=== PATIENT | female | born 1925 | race Caucasian/White ===

== ENCOUNTER 2016-08-28 13:20 | Inpatient (IN) | payer MEDICARE, BC ==
[2016-08-28] VITALS (7 sets, daily range): BP systolic 96–143; BP diastolic 38–65
[~2016-08-28] VITALS: Ht 170.2 cm; Wt 54.4 kg
--- NOTE | 2016-08-28 13:30 | NUR ---
DR HERNANDES AT THE BEDSIDE FOR EVAL AND EXAM.
[2016-08-28] MEDS ORDERED: [UNRECOGNIZED DRUG - REMARK] (13:32)
[2016-08-28] MEDS ORDERED: [UNRECOGNIZED DRUG - REMARK] (13:32)
[2016-08-28] MEDS ORDERED: IV NORMAL SALINE 1000 ML BAG IV ONE (13:45)
[2016-08-28 15:05] LABS: BASOPHILS % (AUTO) 0.4 % (0.0-2.0); CARBON DIOXIDE 28 mmol/L (21-32); CHLORIDE 96 mmol/L (98-107); EOSINOPHILS # (AUTO) 0.1 K/uL (0.0-0.7); EOSINOPHILS % (AUTO) 1.8 % (0.0-7.0); GLUCOSE 124 mg/dL (74-106); HEMOGLOBIN 7.3 G/DL (12.0-16.0); LYMPHOCYTES # (AUTO) 0.5 K/uL (20.0-40.0); LYMPHOCYTES % (AUTO) 11.2 % (20.5-51.5); MEAN CORPUSCULAR HEMOGLOBIN 27.9 UUG (27.0-31.0); MEAN CORPUSCULAR HGB CONC 35 g/dL (32.0-37.0); MONOCYTES # (AUTO) 0.5 K/uL (2.0-10.0); MONOCYTES % (AUTO) 9.7 % (0.0-11.0); NEUTROPHILS # (AUTO) 3.7 K/uL (1.8-8.9); NEUTROPHILS % (AUTO) 76.9 % (38.5-71.5); PLATELET COUNT (AUTO) 278 K/UL (150-450); POTASSIUM 3.7 mmol/L (3.5-5.1); RED BLOOD CELL COUNT(AUTO) 2.62 MIL/UL (4.2-5.4); WHITE BLOOD COUNT (AUTO) 4.8 K/UL (4.0-11.2)
[2016-08-28 15:08] LABS: HEMATOCRIT 20.9 % (37-47); UREA NITROGEN, BLOOD 125 mg/dL (7-18)
[2016-08-28 15:12] LABS: ALKALINE PHOSPHATASE 39 U/L (50-136); BILIRUBIN,DIRECT < 0.1 mg/dL (0.0-0.2); BILIRUBIN,TOTAL 0.2 mg/dL (0.1-1.0)
[2016-08-28 15:13] LABS: ALANINE AMINOTRANSFERASE 17 U/L (14-59); ASPARTATE AMINOTRANSFERASE 22 U/L (15-37); TOTAL PROTEIN, SERUM 6.3 g/dL (6.4-8.2)
[2016-08-28] MEDS ORDERED: PANTOPRAZOLE SODIUM IV 80 MG in IV DEXTROSE 5% 100 ML IV ONE (15:15)
[2016-08-28] MEDS ORDERED: PANTOPRAZOLE SODIUM 40 MG VIAL ONE (15:24)
[2016-08-28] MEDS ORDERED: ACETAMINOPHEN ES 500 MG TABLET PO ONE (15:45)
--- NOTE | 2016-08-28 15:50 | NUR ---
PT C/O LEG CRAMPS, AWARE.
--- NOTE | 2016-08-28 15:57 | NUR ---
BELONGING LIST COMPLETED AND PLACED IN THE CHART, NOT CANDIDATE FOR MRSA.
[2016-08-28] MEDS ORDERED: ACETAMINOPHEN ES 500 MG TABLET ONE (16:00)
--- NOTE | 2016-08-28 18:35 | NUR ---
PT AWAKE IN BED, WITH FRIEND AT BEDSIDE. SR ON TELE MONITOR, NO COMPLAINTS OF PAIN, VS STABLE DR AWARE PT IS HERE WITH ORDERS TO FOLLOW. CALL LIGHT IN REACH
[2016-08-28] MEDS ORDERED: MIRALAX 17 GM POWD.PACK PO PRN (20:15)
[2016-08-28] MEDS ORDERED: ONDANSETRON 4 MG/2 ML VIAL IV PRN (20:15)
[2016-08-28] MEDS ORDERED: ACETAMINOPHEN 325 MG TABLET PO PRN (20:15)
[2016-08-28] MEDS ORDERED: MORPHINE SULFATE 2 MG/1 ML DISP.SYRIN IV PRN (20:15)
[2016-08-28 20:23] LABS: IRON, SERUM 20 ug/dL (50-175)
[2016-08-28] MEDS: DOCUSATE SODIUM 100 MG CAPSULE PO SCH (21:00)
--- NOTE | 2016-08-28 22:31 | NUR ---
NSG: PT HAS THE URGE TO URINATE BUT HAS DIFFICULTY. DR. BRISENO IS AWARE. PER MD, CHECK BLADDER WITH BLADDER SCAN IN 1 HR, DOCUMENT. IF THERE'S TOO MUCH URINE RESIDUAL, INSERT F/C. WILL MONITOR.
[2016-08-29] VITALS (11 sets, daily range): BP systolic 100–140; BP diastolic 36–65
[2016-08-29] MEDS: POTASSIUM CHLORIDE 20 MEQ in IV NS 1000 ML 1,000 ML IV PRN ×2 (04:37→21:06)
[2016-08-29] MEDS: PANTOPRAZOLE SODIUM 40 MG TABLET.DR PO SCH (06:05)
[2016-08-29 06:58] LABS: BASOPHILS % (AUTO) 0.7 % (0.0-2.0); EOSINOPHILS # (AUTO) 0.1 K/uL (0.0-0.7); EOSINOPHILS % (AUTO) 1.8 % (0.0-7.0); HEMOGLOBIN 10.5 G/DL (12.0-16.0); LYMPHOCYTES # (AUTO) 0.9 K/uL (20.0-40.0); LYMPHOCYTES % (AUTO) 16.1 % (20.5-51.5); MEAN CORPUSCULAR HGB CONC 34 g/dL (32.0-37.0); MEAN CORPUSCULAR VOLUME 82.2 FL (81.0-99.0); MONOCYTES # (AUTO) 0.4 K/uL (2.0-10.0); NEUTROPHILS # (AUTO) 4.2 K/uL (1.8-8.9); NEUTROPHILS % (AUTO) 73.4 % (38.5-71.5); PLATELET COUNT (AUTO) 259 K/UL (150-450); RED BLOOD CELL COUNT(AUTO) 3.77 MIL/UL (4.2-5.4); WHITE BLOOD COUNT (AUTO) 5.6 K/UL (4.0-11.2)
[2016-08-29 07:15] LABS: THYROID STIMULATING HORMONE 2.632 mIU/mL (0.358-3.740)
--- NOTE | 2016-08-29 07:20 | NUR ---
Pt received awake,alert,oriented.Denies pain, discomfort.SR on telemetry.VS WNL.On room air.No SOB noted.
[2016-08-29 07:27] LABS: CREATININE 2.7 mg/dL (0.6-1.3); MAGNESIUM 2.6 mg/dL (1.8-2.4); PHOSPHOROUS 4.8 mg/dL (2.5-4.9); POTASSIUM 3.7 mmol/L (3.5-5.1); TOTAL PROTEIN, SERUM 6.6 g/dL (6.4-8.2)
--- NOTE | 2016-08-29 15:46 | NUR ---
Pt remains awake,alert,oriented.Out of bed,tolerated well.
--- NOTE | 2016-08-29 20:00 | NUR ---
RECEIVED PATIENT AWAKE IN BED WITH FAMILY AT BEDSIDE. PATIENT IS A/O X4. DENIES PAIN OR DISCOMFORT. NO RESP. DISTRESS NOTED. IVF INFUSING WELL. ON TELE SR. VSS. CALL LIGHT IN REACH. ALL NEEDS ATTENDED, WILL CONTINUE TO MONITOR.
--- NOTE | 2016-08-29 20:05 | NUR ---
CLINICAL PHARMACY NOTE:VANCOMYCIN DOSING Request for vancomycin dosing on 89 y/o female 5'7" 120 lbs for BLE cellulitis Temp 98.8F BUN 108 Scr 2.7 WBC 5.6 also receiving Ceftriaxone Will dose by levels due to decrease renal function. Give vancomycin 1gm ivpb tonight. Random vancomycin to be drawn tomorrow evening. Will continue to follow
[2016-08-29] MEDS: DOCUSATE SODIUM 100 MG CAPSULE PO SCH ×2 (20:57→21:18)
[2016-08-29] MEDS ORDERED: VANCOMYCIN IV 1 G in PREMIXED 0 EACH IV ONE (21:00)
[2016-08-29] MEDS: CEFTRIAXONE 1 G in IV DEXTROSE 5% 50 ML IV SCH (21:05)
[2016-08-30 00:36] VITALS: BP 132/75
[2016-08-30 04:00] VITALS: BP 128/65
[2016-08-30 05:59] LABS: *BILIRUBIN,URIN NEGATIVE (NEGATIVE); *BLOOD, URINE Trace-intact (NEGATIVE); *CLARITY,URINE CLEAR (CLEAR); *COLOR,URINE YELLOW (YELLOW); *KETONES,URINE NEGATIVE (NEGATIVE); *PROTEIN,URINE NEGATIVE (NEGATIVE); *UROBILINOGEN,URINE 0.2 E.U./dl (NORMAL); LEUKOCYTE ESTERASE ,URINE 2+ (NEGATIVE); NITRITE, URINE NEGATIVE (NEGATIVE); UGLUCOSE NEGATIVE (NEGATIVE)
[2016-08-30 06:01] LABS: *CREATININE,URINE 34.6 mg/dL (30-125); *URINE TOTAL PROTEIN RANDOM 21.3 mg/dL (<150/24HR)
[2016-08-30 06:10] LABS: BACTERIA,URINE FEW /HPF (NONE SEEN); RBC,URINE 0-3 /HPF (0-3); SQUAMOUS EPITHELIAL CELL,UR FEW /HPF (NONE SEEN); WBC,URINE 20-50 /HPF (0-3)
--- NOTE | 2016-08-30 06:27 | NUR ---
PATIENT ASLEEP IN BED. EASILY AROUSABLE. SLEPT WELL THROUGHOUT THE NIGHT. ON TELE SR. IVF INFUSING WELL TO LEFT FA #20 GAUGE. F/C INTACT AND DRAINING WELL. CALL LIGHT IN REACH. ALL NEEDS ATTENDED. WILL CONTINUE TO MONITOR.
[2016-08-30] MEDS: PANTOPRAZOLE SODIUM 40 MG TABLET.DR PO SCH (06:34)
--- NOTE | 2016-08-30 07:00 | NUR ---
PT IS LAYING IN BED COMFORTABLY. NO S/S OF RESPIRATORY DISTRESS NOTED. NO PAIN NOTED/REPORTED. IV IS INTACT/PATENT. ALL SAFETY NEEDS ARE MET. WILL CONTINUE TO MONITOR.
[2016-08-30 07:12] LABS: BILIRUBIN,TOTAL 0.5 mg/dL (0.2-1.0); PHOSPHOROUS 2.6 mg/dL (2.5-4.9); POTASSIUM 3.9 mmol/L (3.5-5.1); TOTAL PROTEIN, SERUM 6.4 g/dL (6.4-8.2)
[2016-08-30 07:13] LABS: CREATININE 1.8 mg/dL (0.6-1.3); EOSINOPHILS # (AUTO) 0.2 K/uL (0.0-0.7); HEMATOCRIT 29.6 % (37-47); HEMOGLOBIN 10.2 G/DL (12.0-16.0); LYMPHOCYTES # (AUTO) 0.7 K/uL (20.0-40.0); LYMPHOCYTES % (AUTO) 12.3 % (20.5-51.5); MEAN CORPUSCULAR HEMOGLOBIN 28.1 UUG (27.0-31.0); MEAN CORPUSCULAR HGB CONC 34 g/dL (32.0-37.0); MEAN CORPUSCULAR VOLUME 81.8 FL (81.0-99.0); MONOCYTES # (AUTO) 0.6 K/uL (2.0-10.0); MONOCYTES % (AUTO) 11.4 % (0.0-11.0); NEUTROPHILS % (AUTO) 73.3 % (38.5-71.5); PLATELET COUNT (AUTO) 257 K/UL (150-450); RED BLOOD CELL COUNT(AUTO) 3.62 MIL/UL (4.2-5.4); WHITE BLOOD COUNT (AUTO) 5.5 K/UL (4.0-11.2)
--- NOTE | 2016-08-30 09:06 | NUR ---
DR. BRISENO IS AWARE THAT THE PT WANTS TO BE DNR
[2016-08-30 11:08] VITALS: BP 126/60
[2016-08-30] MEDS: POTASSIUM CHLORIDE 20 MEQ in IV NS 1000 ML 1,000 ML IV PRN (13:30)
[2016-08-30 15:22] VITALS: BP 122/67
--- NOTE | 2016-08-30 17:39 | NUR ---
CLINICAL PHARMACY NOTE:VANCOMYCIN DOSING Subjective: vancomycin dosing on 89 y/o female 5'7" for BLE cellulitis. Pt received 1gm vanco @ 2200 on 08/30/2016. Patient is also receiving Ceftriaxone. Objective: Temp 98.6F BUN 61 Scr 1.8 WBC 5.5 Dosing wt= 120 lbs, Vancomycin level 10.2 mcg/ml Assessment/Plan: Will dose by levels due to unstable renal function. Will give another dose of vancomycin 1gm. Random vancomycin to be drawn tomorrow evening. Once renal fxn is more stable will dose on a scheduled basis. Will continue to follow
[2016-08-30] MEDS ORDERED: VANCOMYCIN IV 1 G in PREMIXED 0 EACH IV ONE (18:00)
--- NOTE | 2016-08-30 19:24 | NUR ---
NO CHANGES NOTED. ALL SAFETY NEEDS ARE MET.
--- NOTE | 2016-08-30 20:00 | NUR ---
RECEIVED PATIENT AWAKE IN BED WITH VISITOR AT BEDSIDE. PATIENT IS A/O X4. DENIES PAIN OR DISCOMFORT. NO RESP. DISTRESS NOTED. HEPLOCK NOTED TO LEFT FA, RED AND INFILTRATED. NEW IV HEPLOCK STARTED TO LEFT UPPER ARM #20 GAUGE. IVF INFUSING WELL ORDERED. VSS. BED ALARM ON. CALL LIGHT IN REACH. ALL NEEDS ATTENDED. WILL CONTINUE TO MONITOR.
[2016-08-30] MEDS: LACTOBACILLUS RHAMNOSUS GG 1 EACH CAPSULE PO SCH (20:02)
[2016-08-30] MEDS: DOCUSATE SODIUM 100 MG CAPSULE PO SCH (20:02)
[2016-08-30] MEDS: CEFTRIAXONE 1 G in IV DEXTROSE 5% 50 ML IV SCH (20:15)
[2016-08-30 20:24] VITALS: BP 127/62
[2016-08-31 05:32] VITALS: BP 130/62
[2016-08-31] MEDS: POTASSIUM CHLORIDE 20 MEQ in IV NS 1000 ML 1,000 ML IV PRN (06:01)
--- NOTE | 2016-08-31 06:05 | NUR ---
PATIENT AWAKE IN BED. SLEPT WELL THROUGHOUT THE NIGHT. DENIES PAIN OR DISCOMFORT. NO RESP. DISTRESS NOTED. IVF INFUSING WELL TO LEFT UPPER ARM. VSS. CALL LIGHT IN REACH. ALL NEEDS ATTENDED. WILL CONTINUE TO MONITOR.
[2016-08-31] MEDS: PANTOPRAZOLE SODIUM 40 MG TABLET.DR PO SCH (06:23)
[2016-08-31 07:43] LABS: EOSINOPHILS # (AUTO) 0.2 K/uL (0.0-0.7); EOSINOPHILS % (AUTO) 3.8 % (0.0-7.0); HEMOGLOBIN 10.6 G/DL (12.0-16.0); LYMPHOCYTES % (AUTO) 17.3 % (20.5-51.5); MEAN CORPUSCULAR HEMOGLOBIN 28.4 UUG (27.0-31.0); MEAN CORPUSCULAR HGB CONC 34 g/dL (32.0-37.0); MEAN CORPUSCULAR VOLUME 83.5 FL (81.0-99.0); MONOCYTES # (AUTO) 0.6 K/uL (2.0-10.0); MONOCYTES % (AUTO) 11.2 % (0.0-11.0); NEUTROPHILS # (AUTO) 3.7 K/uL (1.8-8.9); NEUTROPHILS % (AUTO) 67.7 % (38.5-71.5); PLATELET COUNT (AUTO) 249 K/UL (150-450); RED BLOOD CELL COUNT(AUTO) 3.72 MIL/UL (4.2-5.4); WHITE BLOOD COUNT (AUTO) 5.5 K/UL (4.0-11.2)
--- NOTE | 2016-08-31 07:51 | NUR ---
NO CHANGES NOTED. PT IS SLEEPING IN BED COMFORTABLY. ALL SAFETY NEEDS ARE MET.
[2016-08-31 08:03] LABS: BILIRUBIN,TOTAL 0.4 mg/dL (0.2-1.0); MAGNESIUM 1.6 mg/dL (1.8-2.4); POTASSIUM 4.2 mmol/L (3.5-5.1); TOTAL PROTEIN, SERUM 6.3 g/dL (6.4-8.2)
[2016-08-31 08:05] LABS: CREATININE 1.5 mg/dL (0.6-1.3)
[2016-08-31] MEDS: LACTOBACILLUS RHAMNOSUS GG 1 EACH CAPSULE PO SCH ×2 (08:10→20:48)
--- NOTE | 2016-08-31 11:05 | NUR ---
CLINICAL PHARMACY NOTE:VANCOMYCIN DOSING Subjective: vancomycin dosing on 89 y/o female 5'7" for BLE cellulitis. Patient is also receiving Ceftriaxone. Objective: Temp 98.4F BUN 32 Scr 1.5 WBC 5.5 Dosing wt= 120 lbs, Assessment/Plan: Will dose by levels due to unstable renal function. Random vancomycin to be drawn today at 1700. pharmacist shall review the level & dose further if needed. Once renal fxn is more stable will dose on a scheduled basis. Will continue to follow Addendum: 08/31/16 at 1852 by MIRELLA OLSON RANDOM LEVEL 14.0 GIVE VANCOMYCIN 1GM IVPB TODAY
--- NOTE | 2016-08-31 11:16 | NUR ---
The patient will be discharged today back home [[address] [place] [address] Cifuentes. She is eager to be discharged and will have a friend pick her up via private car. [facility] [ ; ] will be following her up for RN and PT evaluation. Her RN, Ani, is aware of her discharge plan. Addendum: 09/03/16 at 1011 by SERA MUNOZ CMG Brannon from [facility] stated that they do not have RNs available in the area. Contacted [facility] and Radha stated that they are unable to take the patient because she has an open episode with [facility] [ ]
[2016-08-31] MEDS ORDERED: MAGNESIUM OXIDE 400 MG TABLET PO ONE (11:45)
[2016-08-31] MEDS ORDERED: NEUTRA PHOS PACKET PO ONE (11:45)
[2016-08-31 11:59] VITALS: BP 131/52
[2016-08-31] MEDS ORDERED: LACT1CAP57 PO (13:00)
[2016-08-31] MEDS ORDERED: FERR325T22 PO (13:00)
[2016-08-31] MEDS ORDERED: PANT40TA2 PO (13:00)
--- NOTE | 2016-08-31 15:00 | NUR ---
NOGUEIRA CATHETER IS REMOVED, WILL ASSESS IF PT IS URINATING ON HER OWN. STRAW COLOR/CLEAR URINE IS NOTED IN NOGUEIRA BAG. NO PAIN IS REPORTED BY THE PT.
[2016-08-31 16:39] VITALS: BP 154/74
--- NOTE | 2016-08-31 17:40 | NUR ---
paged dr. Narvaez in regards of the pt not being able to urinate and bladder scanner showed [address] Krause give the pt Flomax 0.8mg now. Will assess the pt for ability to urinate.
[2016-08-31] MEDS ORDERED: TAMSULOSIN HCL 0.4 MG CAP.SR.24H PO ONE (18:00)
--- NOTE | 2016-08-31 18:55 | NUR ---
PER DR. BRISENO WAIT AND ASSESS THE PT URINATING ABILITY TILL 9PM, IF THE PT WON'T BE ABLE TO URINATE LET THE NURSE PAGE THE
--- NOTE | 2016-08-31 19:03 | NUR ---
END OF SHIFT NOTE: NO S/S OF RESPIRATORY DISTRESS NOTED. NO PAIN REPORTED. IV INTACT/PATENT. V/S WNL. ALL SAFETY NEEDS ARE MET. PT IS ALERT AND ORIENTEDx3, CALM AND COOPERATIVE.
--- NOTE | 2016-08-31 19:30 | NUR ---
PATIENT IN BED WITH FRIEND AT BEDSIDE. NOTED SMALL AMOUNT OF URINE IN DIAPER, CHECKED WITH BLADDER SCANNER, SHOWED 953CC REMAINING. PATIENT STATED SHE STILL FEELS FULL. REPOSITIONED HER, HOB ELEVATED. WILL MONITOR
[2016-08-31] MEDS: CEFTRIAXONE 1 G in IV DEXTROSE 5% 50 ML IV SCH (19:49)
[2016-08-31 20:00] VITALS: BP 152/67
[2016-08-31] MEDS: DOCUSATE SODIUM 100 MG CAPSULE PO SCH (21:00)
[2016-08-31] MEDS ORDERED: VANCOMYCIN IV 1 G in PREMIXED 0 EACH IV ONE (21:00)
--- NOTE | 2016-08-31 21:00 | NUR ---
RECHECKED WITH BLADDER SCANNER RETAINING 853CC. KEL JOSEPH, AWAITING FOR CALL BACK
--- NOTE | 2016-08-31 21:20 | NUR ---
DR. JADE CALLED BACK, MADE AWARE OF PATIENT'S CONDITION. SEE ORDERS.
--- NOTE | 2016-08-31 22:27 | NUR ---
IN AND OUT CATHETER DONE, ABLE TO COLLECT 1000 CC URINE. PATIENT STATED RELIEF
[2016-09-01] MEDS: POTASSIUM CHLORIDE 20 MEQ in IV NS 1000 ML 1,000 ML IV PRN (00:55)
--- NOTE | 2016-09-01 01:00 | NUR ---
PATIENT COMPLAINED OF BLADDER DISCOMFORT, CHECKED WITH BLADDER SCANNER RETAINING 735 CC, DIAPER DRY. MARCELINA BENITEZ MADE AWARE, OKAY TO INSERT NOGUEIRA THAN DOING IN AND OUT.
--- NOTE | 2016-09-01 04:00 | NUR ---
STATED RELIEF OF BLADDER DISCOMFORT. BUT WITH COMPLAINTS OF RIGHT LEG PAIN, STATED MAYBE BECAUSE OF POSITION, TRIED TO REPOSITION BUT STILL COMPLAINING OF PAIN. ADMINISTERED TYLENOL ORDERED. WILL MONITOR
[2016-09-01 04:40] VITALS: BP 128/46
--- NOTE | 2016-09-01 06:00 | NUR ---
PATIENT ASLEEP IN BED, NO S/SX OF PAIN. NO ACUTE DISTRESS NOTED. ALL DUE MEDS GIVEN ORDERED. KEPT COMFORTABLE AT ALL TIMES. F/C IN PLACE. NEEDS ATTENDED. CALL LIGHT WITHIN REACH
[2016-09-01] MEDS: PANTOPRAZOLE SODIUM 40 MG TABLET.DR PO SCH (06:12)
[2016-09-01] MEDS: LACTOBACILLUS RHAMNOSUS GG 1 EACH CAPSULE PO SCH (08:19)
[2016-09-01 11:24] VITALS: BP 119/51
--- NOTE | 2016-09-01 14:32 | NUR ---
Patient being discharged at this time. Patient given discharge instruction. Patient given information to follow up and make appointment with Dr. Myriam scott. Patient and family instructed on placing leg bag when leaving home. Instructed to use gloves and ensure sterile technique. Patient understands discharge instruction. Patient also given instructions on home health agency. [facility].
--- NOTE | 2016-09-01 15:00 | NUR ---
Patient discharged from unit with family.
[2016-09-02 11:09] LABS: A/G RATIO 1.1 (0.7-1.7); ALBUMIN 3.1 g/dL (2.9-4.4); ALPHA-1-GLOBULIN 0.3 g/dL (0.0-0.4); ALPHA-2-GLOBULIN 0.7 g/dL (0.4-1.0); BETA GLOBULIN 0.8 g/dL (0.7-1.3); GAMMA GLOBULIN 0.9 g/dL (0.4-1.8); GLOBULIN, TOTAL 2.7 g/dL (2.2-3.9); M-SPIKE Not Observed g/dL (Not Observed)
== END 2016-09-01 15:00 | disposition home health service (06) | DRG 377 ==
LOC: ER 13:20 → TELE 16:27 → MED 08-30 13:06
PROVIDERS: ADMIT Internal Medicine; ATTEND Internal Medicine
PROC: 30233N1 Transfusion of Nonautologous Red Blood Cells into Peripheral Vein, Percutaneous Approach (ICD-10-PCS; principal; 2016-08-28)
DX: K92.2 Gastrointestinal hemorrhage, unspecified (principal); N17.0 Acute kidney failure with tubular necrosis; E43 Unspecified severe protein-calorie malnutrition; L03.115 Cellulitis of right lower limb; L03.116 Cellulitis of left lower limb; D68.59 Other primary thrombophilia; Z68.1 Body mass index [BMI] 19.9 or less, adult; E86.0 Dehydration; I12.9 Hypertensive chronic kidney disease with stage 1 through stage 4 chronic kidney disease, or unspecified chronic kidney disease; N18.9 Chronic kidney disease, unspecified; R33.9 Retention of urine, unspecified; Z85.3 Personal history of malignant neoplasm of breast; Z87.442 Personal history of urinary calculi; R73.9 Hyperglycemia, unspecified; Z88.2 Allergy status to sulfonamides; Z79.899 Other long term (current) drug therapy; D50.0 Iron deficiency anemia secondary to blood loss (chronic)
CPT/HCPCS: 36415; 70030-TC; 70450; 71010; 76770; 82378; 83550; 83735; 83970; 84100; 84155; 84156; 84165; 84300; 84443; 85025; 85730; 86140; 86850; 86900; 86901; 86920; 87077; 87086; 93005; 93307; 97001; 97116; 97530; C1758; C9113; J0696; J3370; J3480; J7030; J7050; J7060; P9016-BL; P9021